=== PATIENT | female | born 2000 | race African-American/Black ===

== ENCOUNTER 2021-01-19 20:57 | Emergency (ER) | payer OTHER ==
[2021-01-19] MEDS ORDERED: Acetaminophen 500 MG TAB ONE (22:07)
[2021-01-19] MEDS ORDERED: Boostrix 0.5 ML (Tdap) VIAL ONE (22:07)
== END 2021-01-19 23:06 | disposition home or self-care (01) ==
LOC: CSHERS 20:57
DX: S61.451A Open bite of right hand, initial encounter (principal); W54.0XXA Bitten by dog, initial encounter
CPT/HCPCS: 90471; 90715

== ENCOUNTER 2023-10-07 08:13 | Emergency (ER) | payer OTHER, SELFPAY | END 2023-10-07 12:00 | disposition home or self-care (01) | LOC: CSHERS 08:13 | DX: B34.9 Viral infection, unspecified (principal) | CPT/HCPCS: 99283 ==

== ENCOUNTER 2023-10-10 12:11 | Emergency (ER) | payer SELFPAY ==
[2023-10-10 13:14] LABS: SARS-CoV-2 NAA Rapid Test Not Detected (NotDetected)
== END 2023-10-10 13:35 | disposition home or self-care (01) ==
LOC: CSHERS 12:11
DX: J10.1 Influenza due to other identified influenza virus with other respiratory manifestations (principal); Z20.822 Contact with and (suspected) exposure to COVID-19
CPT/HCPCS: 87081; 87430; 99283